=== PATIENT | male | born 1985 | race African-American/Black ===

== ENCOUNTER 2016-07-02 19:10 | Emergency (ER) | payer SELFPAY ==
[2016-07-02] MEDS ORDERED: KETOROLAC TROMETHAMINE 60 MG/2 ML VIAL ONE (20:20)
--- NOTE | 2016-07-02 20:38 | RAD ---
Name: BAHMAN VERGARA Exam: Two-view chest Comparison: None Clinical history: Fall. Right rib pain. Findings: 2 views of the chest are submitted. The heart mediastinum and hilar structures are within normal limits. There is no failure, infiltrate, pleural effusion or pneumothorax. Regional skeleton is within normal limits. Specifically, there is no current evidence for a right rib fracture. Impression: No acute cardiopulmonary process
== END 2016-07-02 22:02 | disposition home or self-care (01) ==
LOC: ED 19:10
DX: S29.9XXA Unspecified injury of thorax, initial encounter (principal); W01.198A Fall on same level from slipping, tripping and stumbling with subsequent striking against other object, initial encounter; Y92.9 Unspecified place or not applicable
CPT/HCPCS: 71020; 99283 ×2; 96372; J1885